=== PATIENT | male | born 1985 | race Caucasian/White ===

== ENCOUNTER 2020-06-09 12:32 | Outpatient (REF) | payer MEDICAID, SELFPAY ==
[2020-06-13 06:24] LABS: Patient Race White; SARS-CoV-2 RNA Undetected (Undetected); SARS-CoV-2 Specimen Source Nasal
== END 2020-06-09 12:52 ==
LOC: NCHCN 12:32
PROVIDERS: PCP Internal Medicine; Visit Provider Physician Assistant
DX: R05 Cough (principal)
CPT/HCPCS: U0003

== ENCOUNTER 2023-09-23 14:00 | Outpatient (REF) | payer MEDICAID, SELFPAY ==
--- OUTSIDE RECORDS SUMMARY | 2023-09-23 14:03 | XMS_ITS | Continuity of Care Document ---
Author Name Unknown Organization [facility] Address [address] [place] [address] Care Team Providers Care [employer] Name Role Phone Belen Colon Primary Care Physician Encounter [facility] Date(s): 06/04/23 - 06/04/[address] [phone] Discharge Disposition: Home or Self Care Attending Physician: Callie Darling APRN Admitting Physician: Callie Darling APRN Referring Physician: Callie Darling APRN Allergies, Adverse Reactions, Alerts No Known Medication Allergies Immunizations Given and Recorded Vaccine Date Status Refusal Reason tetanus/diphth/pertuss (Tdap) adult/adol 03/08/22 Given Medications Advair Diskus 250 mcg-50 mcg inhalation powder 1 puffs, Inhale, Daily, # 180 EA, 0 Refill(s) Start Date: 03/08/22 Status: Ordered Albuterol (Eqv-ProAir HFA) 0 Refill(s) Start Date: 03/08/22 Status: Ordered levoFLOXacin 500 mg oral tablet 500 mg = 1 tab, Oral, every 24 hr, # 7 tab, 0 Refill(s), Pharmacy: [id number], 177.8, cm,03/08/22 11:38:00 EDT, Height/Length Dosing, 108.9, kg, 03/08/22 11:38:00 EDT, Weight Dosing Start Date: 03/08/22 Stop Date: 03/15/22 Status: Ordered Results Laboratory List Name Date ALT 06/04/23 AST 06/04/23 GGT 06/04/23 Most recent to oldest [Reference Range]: 1 AST [15-37 unit/L] 33 unit/L (06/04/23 1:58 PM) ALT [16-63 unit/L] 76 unit/L *HI* (06/04/23 1:58 PM) GGT [15-85 unit/L] 88 unit/L *HI* (06/04/23 1:58 PM) Social History Social History Type Response Tobacco Former tobacco user Tobacco Use:. Sex Male Patient Care team information Care Team Personnel Name: Belen Colon PA-C Position: PowerChart View Only Member Role: Informed Provider Address: Address: [address] [address]- Care Team Related Persons Name: YAHAIRA HART
--- OUTSIDE RECORDS SUMMARY | 2023-09-23 14:03 | XMS_ITS | Continuity of Care Document ---
Author Name Unknown Organization [facility] Address [address] [place] [address] Care Team Providers Care Sustainable Agriculture Specialist Name Role Phone Belen Colon Primary Care Physician [phone] [facility] Date(s): 03/31/23 - 03/31/[address] [address] Encounter Diagnosis Back pain(Discharge Diagnosis) - 03/31/23 Discharge Disposition: Home or Self Care Attending Physician: Vickie Gomez MD Admitting Physician: Vickie Gomez MD Allergies, Adverse Reactions, Alerts No Known Medication Allergies Functional Status 03/31/23 Family Member Travel History No recent t ravel Recent Travel History No recent travel Other exposure to Infectious Disease Non e Immunizations Given and Recorded Vaccine Date Status Refusal Reason tetanus/diphth/pertuss (Tdap) adult/adol 03/08/22 Given Medications Advair Diskus 250 mcg-50 mcg inhalation powder 1 puffs, Inhale, Daily, # 180 EA, 0 Refill(s) Start Date: 03/08/22 Status: Ordered Albuterol (Eqv-ProAir HFA) 0 Refill(s) Start Date: 03/08/22 Status: Ordered cyclobenzaprine 10 mg oral tablet 10 mg = 1 tab, Oral, BID, PRN as needed for muscle spasm, X 6 days, # 12 tab, 0 Refill(s), 04/06/2313:59:00 EDT, Pharmacy: [id number], 177, cm, 03/31/23 12:54:00 EDT, Height/Length Dosing,100, kg, 03/31/23 12:54:00 EDT, Weight Dosing Start Date: 03/31/23 Stop Date: 04/06/23 Status: Ordered levoFLOXacin 500 mg oral tablet 500 mg = 1 tab, Oral, every 24 hr, # 7 tab, 0 Refill(s), Pharmacy: [facility], 177.8, cm,03/08/22 11:38:00 EDT, Height/Length Dosing, 108.9, kg, 03/08/22 11:38:00 EDT, Weight Dosing Start Date: 03/08/22 Stop Date: 03/15/22 Status: Ordered Vital Signs Most recent to oldest [Reference Range]: 1 Temperature Temporal Artery [36-38 Deg C ] 36.4 Deg C (03/31/23 12:45 PM) Peripheral Pulse Rate [60-100 bpm] 63 bp m (03/31/23 12:45 PM) Blood Pressure [90-140/60-90 mmHg] 139/9 6mmHg (03/31/23 12:45 PM) Weight Dosing 100.00 kg (03/31/23 12:54 PM) Weight Estimated 100.00 kg (03/31/23 12:45 PM) Height/Length Dosing 177.000 cm (03/31/23 12:54 PM) Height/Length Estimated 177.000 cm (03/31/23 12:45 PM) Social History Social History Type Response Tobacco Former tobacco user Tobacco Use:. Sex Male Hospital Discharge Instructions Patient Education 03/31/2023 12:58:44 Acute Back Pain, Adult Acute Back Pain, Adult Acute back pain is sudden and usually short-lived. It is often caused by an injury to the muscles and tissues in the back. The injury may result from: ??? A muscle, tendon, or ligament getting overstretched or torn. Ligaments are tissues that connectbones to each other. Lifting something improperly can cause a back strain. ??? Wear and tear (degeneration) of the spinal disks. Spinal disks are circular tissue that providecushioning between the bones of the spine (vertebrae). ??? Twisting motions, such as while playing sports or doing yard work. ??? A hit to the back. ??? Arthritis. You may have a physical exam, lab tests, and imaging tests to find the cause of your pain. Acute back pain usually goes away with rest and home care. Follow these instructions at home: Managing pain, stiffness, and swelling ??? Take vcmb-mri-desxqlu and prescription medicines only as told by your health care provider. Treatment may include medicines for pain and inflammation that are taken by mouth or applied to the skin, or muscle relaxants. ??? Your health care provider may recommend applying ice during the first 24???48 hours after your pain starts. To do this: ??? Put ice in a plastic bag. ??? Place a towel between your skin and the bag. ??? Leave the ice on for 20 minutes, 2???3 times a day. ??? Remove the ice if your skin turns bright red. This is very important. If you cannot feel pain, heat, or cold, you have a greater risk of damage to the area. ??? If directed, apply heat to the affected area as often as told by your health care provider. Usethe heat source that your health care provider recommends, such as a moist heat pack or a heating pad. ??? Place a towel between your skin and the heat source. ??? Leave the heat on for 20???30 minutes. ??? Remove the heat if your skin turns bright red. This is especially important if you are unable to feel pain, heat, or cold. You have a greater risk of getting burned. Activity ??? Do not stay in bed. Staying in bed for more than 1???2 days can delay your recovery. ??? Sit up and stand up straight. Avoid leaning forward when you sit or hunching over when you stand. ??? If you work at a desk, sit close to it so you do not need to lean over. Keep your chin tucked in. Keep your neck drawn back, and keep your elbows bent at a 90-degree angle (right angle). ??? Sit high and close to the steering wheel when you drive. Add lower back (lumbar) support to your car seat, if needed. ??? Take short walks on even surfaces as soon as you are able. Try to increase the length of time you walk each day. ??? Do not sit, drive, or chief investigator one place for more than 30 minutes at a time. Sitting or standing for long periods of time can put stress on your back. ??? Do not drive or use heavy machinery while taking prescription pain medicine. ??? Use proper lifting techniques. When you bend and lift, use positions that put less stress on your back: ??? Bend your knees. ??? Keep the load close to your body. ??? Avoid twisting. ??? Exercise regularly as told by your health care provider. Exercising helps your back heal fasterand helps prevent back injuries by keeping muscles strong and flexible. ??? Work with a physical therapist to make a safe exercise program, as recommended by your health care provider. Do any exercises as told by your physical therapist. Lifestyle ??? Maintain a healthy weight. Extra weight puts stress on your back and makes it difficult to havegood posture. ??? Avoid activities or situations that make you feel anxious or stressed. Stress and anxiety increase muscle tension and can make back pain worse. Learn ways to manage anxiety and stress, such as through exercise. General instructions ??? Sleep on a firm mattress in a comfortable position. Try lying on your side with your knees slightly bent. If you lie on your back, put a pillow under your knees. ??? Keep your head and neck in a straight line with your spine (neutral position) when using electronic equipment like smartphones or pads. To do this: ??? Raise your smartphone or pad to look at it instead of bending your head or neck to look down. ??? Put the smartphone or pad at the level of your face while looking at the screen. ??? Follow your treatment plan as told by your health care provider. This may include: ??? Cognitive or behavioral therapy. ??? Acupuncture or massage therapy. ??? Meditation or yoga. Contact a health care provider if: ??? You have pain that is not relieved with rest or medicine. ??? You have increasing pain going down into your legs or buttocks. ??? Your pain does not improve after 2 weeks. ??? You have pain at night. ??? You lose weight without trying. ??? You have a fever or chills. ??? You develop nausea or vomiting. ??? You develop abdominal pain. Get help right away if: ??? You develop new bowel or bladder control problems. ??? You have unusual weakness or numbness in your arms or legs. ??? You feel faint. These symptoms may represent a serious problem that is an emergency. Do not wait to see if the symptoms will go away. Get medical help right away. Call your local emergency services (911 in the [place] Do not drive yourself to the hospital. Summary ??? Acute back pain is sudden and usually short-lived. ??? Use proper lifting techniques. When you bend and lift, use positions that put less stress on your back. ??? Take vsjq-bln-ostpigl and prescription medicines only as told by your health care provider, andapply heat or ice as told. This information is not intended to replace advice given to you by your health care provider. Make sure you discuss any questions you have with your health care provider. Document Revised: 11/09/2021 Document Reviewed: 11/09/2021 Elsevier Patient Education ?? 2022 [employer] Follow Up Care 03/31/2023 12:45:23 With:Primary Care Physician Address: When:1 week Physician Emergency department Note * Vickie Gomez MD: PERFORM Event Display: ED Note Physician Authored Date: [id number] URBAN GONZALEZ :1985 Age:38 years Sex:Male Visit Date:03/31/2023 Primary Care Physician: Belen Colon PA-C Basic Information Time Seen: Vickie Gomez MD / 03/31/2023 12:55 Chief Complaint R lower back pain radiating down right leg. Denies obvious trauma to area, no changes in sensation distally. Has worsened over passed 24 hours. Denies urianry sx. Hx back spasms. Worse with movement,tolerable sitting. History Of Present Illness: 38y.o. w/ h/o??back pain??presents to the emergency department complaining of back pain.?? The patient reports a slipped disc many years ago for which she??was followed??by??spine??at [facility]??physical therapy, spinal injections,??with improvement??in the pain.?? Yesterday??he played soccer with his kids??during which he??did some diving??and after the game??had some slight back??pain.?After resting in the evening he noted??worsening??right-sided back pain with radiation to his right buttock.?? This morning the pain was even worse.?? He has pain on ambulation. ??He denies numbness, tingling or weakness down his??right lower extremity for??any other extremity.?? He has had??no perianal anesthesia, no bowel or bladder incontinence.?? He took some Tylenol and ibuprofen??this morning presents to the ED with c/o back pain ?? ROS: In addition to the ROS embedded in the HPI, the patient has no Const: fever, chills CV: chest pain or palpitations Pulm: sob GI: n/v/c/d or abd pain ? Physical examination GENERAL: A&Ox3, Well developed well nourished in nad HEENT: Moist mucous membranes. NECK: Supple, no JVD. BACK: no ttp over the spine, no step off, there is paraspinal ttp on the Rt EXTREMITIES: No clubbing, cyanosis or edema, motor 5/5 in all 4 extremities, sensation intact, gaitis steady [@@@] with normal coordination, patellar reflexes wnl and symmetric b/l.? MDM: 38year-old male with prior history of??back pain presents to the emergency department with??worsening back pain since playing soccer??yesterday. ?? Previous charts reviewed. Vitals reviewed, nursing triage note reviewed ?? Initial DDx in this patient included herniated intervertebral disc, acute ligamentous injury, acutemuscle strain, spondylolisthesis and other musculoskeletal etiologies, cauda equina, spinal fracture, spinal stenosis, epidural abscess and hematoma, cancer metastases, kidney stone, and vascular catastrophe such as aortic dissection. ?? Patient presented with lower back pain with reassuring VS and exam.?? Was noted to have no red flag signs or symptoms of cauda equina or central herniation based on history and exam. Patient denied preceding trauma. ??Patient noted to have a normal neurologic examination in the ED to include deep tendon reflexes in the lower extremities. ??Patient felt to have no indication for imaging at this time. No history of recent surgery or recent??injections in the back, IVDU, fever, or other findings to suggest risk for epidural hematoma or abscess. ??Doubt kidney stone or urinary tract infection given absence of urinary symptoms, significant costovertebral angle (CVA)tenderness or other suggestive findings. ??Not consistent with aortic dissection with pain not descr ibed as tearing pain and no chest pain.? Patient reported significant improvement in pain with treatment in the ED with Toradol and Flexerilprior to discharge. ?? Prior to discharge, we discussed modified activity with emphasis on avoiding prolonged bedrest. ??We discussed return precautions, specifically for worsening pain or focal neurologic deficits, treatment with NSAIDs/muscle relaxants and follow up with primary care doctor within one to two weeks for further evaluation, and the patient demonstrated understanding and agreement with this plan. ??Wealso discussed follow up with primary care doctor for referral to physical therapy and consideration of outpatient imaging. All questions answered. Physical Exam Vitals & Measurements T:??36.4?C ??(Temporal Artery)?? HR:??63??(Peripheral)?? BP:??139/96?? SpO2:??99%?? HT:??177.000??cm?? WT:??100.00??kg??(Estimated)?? Procedure No Qualifying Data Assessment/Plan 1.??Back pain??M54.9 Ordered: cyclobenzaprine 10 mg oral tablet, 10 mg = 1 tab, Oral, BID, PRN as needed for muscle spasm, X 6 days, # 12 tab, 0 Refill(s), 04/06/23 13:59:00 EDT, Pharmacy: [facility], 177, cm, 03/31/23 12:54:00 EDT, Height/Length Dosing, 100, kg, 03/31/23 12:54:00 EDT, Weight Dosing Discharge Patient, 03/31/23 14:02:00 EDT, Constant Indicator ?? Patient Education Acute Back Pain, Adult Follow Up With When Contact Information Primary Care Physician Within 1 week Additional Instructions: Medication Reconciliation New Prescription cyclobenzaprine (cyclobenzaprine 10 mg oral tablet)1 tab Oral (given by mouth) 2 times a day as needed as needed for muscle spasm for 6 Days. Refills: 0. ?? Unchanged albuterol (Albuterol (Eqv-ProAir HFA)) ?? fluticasone-salmeterol (Advair Diskus 250 mcg-50 mcg inhalation powder)1 Puffs Inhale (breathe in) every day. ?? levoFLOXacin (levoFLOXacin 500 mg oral tablet)1 tab Oral (given by mouth) every 24 hours for 7 Days. Refills: 0. Problem List/Past Medical History Ongoing No qualifying data Historical No qualifying data Medication Administration Given cyclobenzaprine, 10 mg, Oral Toradol, 30 mg, IM Allergies No Known Medication Allergies Social History Alcohol Never Electronic Cigarette/Vaping Electronic Cigarette Use: Never. Tobacco Former tobacco user Tobacco Use:. Electronically Signed on 03/31/23 02:07 PM Vickie Gomez MD Emergency department Discharge instructions * Vickie Gomez MD: PERFORM Event Display: ED Discharge Information Authored Date: [id number] URBAN GONZALEZ :1985 Age:38 years Sex:Male Visit Date:03/31/2023 Primary Care Physician: Belen Colon PA-C Discharge Instructions We would like to thank you for allowing us to assist you with your healthcare needs. The following includes patient education materials and information regarding your injury/illness. Diagnosis from Today's Visit Back pain Discharge Vitals Temperature??(Temporal Artery) 97.5 ??F (36.4 ??C) Heart Rate??(Peripheral) 63 Blood Pressure?? 139/96?? Height?? 69.69 in (177.000 cm) Weight??(Estimated) 220.50 lb (100.00 kg) Allergies No Known Medication Allergies What to Do Next Instructions from Your Care Team Please continue Tylenol??1 g every 8 hours??as well as ibuprofen 600 mg??every 8 hours so that you alternate and take??1 or the other every 4 hours.?Use ice or heat on the area.?? For very severe pain, take muscle relaxant up to twice a day. ??Please??do not drive or operate machinery when taking this medication as it may make you sleepy.?? Follow-up with your primary care provider for reevalua tion??and physical therapy if symptoms do not improve??in about??1 week??and to reach out??to your spine[facility]surgery team [facility] at [facility].?? Return to the emergency department for any new or worseningsymptoms. You Need to Schedule the Following Appointments Follow Up with??Primary Care Physician When:??Within 1 week You were treated today on an emergency basis; it may be bennett to contact your primary care provider to notify them of your visit today. You may have been referred to your regular doctor or a specialist, please follow up as instructed. If your condition worsens or you can't get in to see the doctor, contact the Emergency Department. Medications What How Much When Why Instructions Next Dose New cyclobenzaprine (cyclobenzaprine 10 mg oral tablet) 1 tab Oral (given by mouth) 2 times a day as needed for as needed for muscle spasm Back pain Duration: 6 Days Pickup at [facility] Unchanged albuterol (Albuterol (Eqv-ProAir HFA)) Unchanged fluticasone-salmeterol (Advair Diskus 250 mcg-50 mcg inhalation powder) 1 Puffs Inhale (breathe in) Every day Unchanged levoFLOXacin (levoFLOXacin 500 mg oral tablet) 1 tab Oral (given by mouth) Every 24 hours Foreign body in skin of foot Duration: 7 Days Pharmacy Information [facility]: [address], [place] [phone] Education Materials Acute Back Pain, Adult Acute back pain is sudden and usually short-lived. It is often caused by an injury to the muscles and tissues in the back. The injury may result from: ? A muscle, tendon, or ligament getting overstretched or torn. Ligaments are tissues that connect bones to each other. Lifting something improperly can cause a back strain. ? Wear and tear (degeneration) of the spinal disks. Spinal disks are circular tissue that provide cushioning between the bones of the spine (vertebrae). ? Twisting motions, such as while playing sports or doing yard work. ? A hit to the back. ? Arthritis. You may have a physical exam, lab tests, and imaging tests to find the cause of your pain. Acute back pain usually goes away with rest and home care. Follow these instructions at home: Managing pain, stiffness, and swelling ? Take bobr-aly-natjgah and prescription medicines only as told by your health care provider. Treatment may include medicines for pain and inflammation that are taken by mouth or applied to the skin, or muscle relaxants. ? Your health care provider may recommend applying ice during the first 24???48 hours after your painstarts. To do this: ? Put ice in a plastic bag. ? Place a towel between your skin and the bag. ? Leave the ice on for 20 minutes, 2???3 times a day. ? Remove the ice if your skin turns bright red. This is very important. If you cannot feel pain, heat, or cold, you have a greater risk of damage to the area. ? If directed, apply heat to the affected area as often as told by your health care provider. Use theheat source that your health care provider recommends, such as a moist heat pack or a heating pad. ? Place a towel between your skin and the heat source. ? Leave the heat on for 20???30 minutes. ? Remove the heat if your skin turns bright red. This is especially important if you are unable to feel pain, heat, or cold. You have a greater risk of getting burned. Activity ? Do not stay in bed. Staying in bed for more than 1???2 days can delay your recovery. ? Sit up and stand up straight. Avoid leaning forward when you sit or hunching over when you stand. ? If you work at a desk, sit close to it so you do not need to lean over. Keep your chin tucked in. Keep your neck drawn back, and keep your elbows bent at a 90-degree angle (right angle). ? Sit high and close to the steering wheel when you drive. Add lower back (lumbar) support to your car seat, if needed. ? Take short walks on even surfaces as soon as you are able. Try to increase the length of time you walk each day. ? Do not sit, drive, or chief investigator one place for more than 30 minutes at a time. Sitting or standing for long periods of time can put stress on your back. ? Do not drive or use heavy machinery while taking prescription pain medicine. ? Use proper lifting techniques. When you bend and lift, use positions that put less stress on your back: ? Bend your knees. ? Keep the load close to your body. ? Avoid twisting. ? Exercise regularly as told by your health care provider. Exercising helps your back heal faster andhelps prevent back injuries by keeping muscles strong and flexible. ? Work with a physical therapist to make a safe exercise program, as recommended by your health care provider. Do any exercises as told by your physical therapist. Lifestyle ? Maintain a healthy weight. Extra weight puts stress on your back and makes it difficult to have good posture. ? Avoid activities or situations that make you feel anxious or stressed. Stress and anxiety increase muscle tension and can make back pain worse. Learn ways to manage anxiety and stress, such as through exercise. General instructions ? Sleep on a firm mattress in a comfortable position. Try lying on your side with your knees slightlybent. If you lie on your back, put a pillow under your knees. ? Keep your head and neck in a straight line with your spine (neutral position) when using electronicequipment like smartphones or pads. To do this: ? Raise your smartphone or pad to look at it instead of bending your head or neck to look down. ? Put the smartphone or pad at the level of your face while looking at the screen. ? Follow your treatment plan as told by your health care provider. This may include: ? Cognitive or behavioral therapy. ? Acupuncture or massage therapy. ? Meditation or yoga. Contact a health care provider if: ? You have pain that is not relieved with rest or medicine. ? You have increasing pain going down into your legs or buttocks. ? Your pain does not improve after 2 weeks. ? You have pain at night. ? You lose weight without trying. ? You have a fever or chills. ? You develop nausea or vomiting. ? You develop abdominal pain. Get help right away if: ? You develop new bowel or bladder control problems. ? You have unusual weakness or numbness in your arms or legs. ? You feel faint. These symptoms may represent a serious problem that is an emergency. Do not wait to see if the symptoms will go away. Get medical help right away. Call your local emergency services (911 in the [place] Do not drive yourself to the hospital. Summary ? Acute back pain is sudden and usually short-lived. ? Use proper lifting techniques. When you bend and lift, use positions that put less stress on your back. ? Take gnph-hwr-feceman and prescription medicines only as told by your health care provider, and apply heat or ice as told. This information is not intended to replace advice given to you by your health care provider. Make sure you discuss any questions you have with your health care provider. Document Revised: 11/09/2021 Document Reviewed: 11/09/2021 [employer] Patient Education ?? 2022 [employer] Tests Performed Medications and Immunizations Administered Given cyclobenzaprine, 10 mg, Oral Toradol, 30 mg, IM Patient/Senior Maintenance Machinist Signature Patient Name:URBAN GONZALEZ I have received this information and my questions have been answered. Patient/Senior Maintenance Machinist Name: Patient/Senior Maintenance Machinist Signature: Relationship to Patient: Witness Name/Signature: Date: Electronically Signed on: 03/31/2023 14:02 EDTSigned by:[facility] Emergency department Note * Crista Swift M: PERFORM Event Display: ED Notes Authored Date: [id number] Patient Care team information Care Team Personnel Name: Belen Colon PA-C Position: PowerChart View Only Member Role: Informed Provider Address: Address: [id number] [place] [address] Name: Vickie Gomez MD Position: Physician Member Role: ED Physician Address: Address: [address] [place] [phone] Name: Dano Jackson RN Position: Nurse Member Role: ED Nurse Name: Robert Camejo RN Position: Nurse Member Role: ED Nurse Care Team Related Persons Name: YAHAIRA HART
[2023-09-23 19:37] LABS: Abs Immature Grans 0.02 10^3/uL (0.0-0.06); Absolute Basophil Count 0.08 10^3/uL (0.0-0.2); Absolute Eosinophil Count 0.18 10^3/uL (0.0-0.7); Absolute Lymphocyte Count 1.86 10^3/uL (1.2-3.4); Absolute Monocyte Count 0.52 10^3/uL (0.1-0.8); Absolute Neutrophil Count 5.35 10^3/uL (1.2-6.7); Eosinophils % 2.2; HCT 48.5 % (40.0-50.0); HGB 16.9 g/dL (13.5-17.5); Immature Grans % 0.2; Lymphocytes % 23.2; MCHC 34.8 % (32.0-36.0); MCV 86 fL (80-95); MPV 9.1 fL (8.0-11.0); Monocytes % 6.5; Neutrophils % 66.9; Platelet Count 426 10^3/uL (130-400); RBC 5.63 10^6/uL (4.36-5.78); RDW 11.8 % (11.8-14.1); RDW-SD 37.4 fL; WBC 8.01 10^3/uL (4.4-10.8)
[2023-09-23 19:57] LABS: Iron 89 ug/dL (65-175); Total Iron Binding Capacity 344 ug/dL (250-450); Transferrin Sat 26 % (20-55)
[2023-09-23 20:05] LABS: ALT 77 U/L (16-63); AST 37 U/L (15-37); Albumin 4.5 g/dL (3.4-5.0); Alkaline Phosphatase 95 U/L (46-116); Anion Gap 4.8 mmol/L (3-11); BUN 14 mg/dL (7-18); Bilirubin, Total 0.5 mg/dL (0.2-1.0); CO2 30.2 mmol/L (21.0-32.0); CREATININE 1.2 mg/dL (0.70-1.30); Calcium 9.9 mg/dL (8.5-10.1); Chloride 102 mmol/L (98-107); Estimated GFR 80.38 (mL/min/1.73m2); Ferritin 295 ng/mL (26-388); Glucose 130 mg/dL (74-106); Potassium 4.3 mmol/L (3.5-5.1); Sodium 137 mmol/L (136-145); Total Protein 8.4 g/dL (6.4-8.2)
[2023-09-24 19:05] LABS: Hepatitis B Surface Ab Positive (See Note)
[2023-09-24 19:16] LABS: Hepatitis B Surface Ag Negative (Negative)
[2023-09-24 19:43] LABS: Hepatitis C Ab w Rflx HCV PCR Negative (Negative)
== END 2023-09-23 14:01 | disposition home or self-care (01) ==
LOC: NCHCN 14:00
PROVIDERS: PCP Internal Medicine; Visit Provider Physician Assistant
DX: K76.89 Other specified diseases of liver (principal)
CPT/HCPCS: 80053; 86706; 86803; 87340; 82728; 83540; 83550; 85025